=== PATIENT | female | born 1935 | race Caucasian/White ===

== ENCOUNTER 2019-11-24 09:51 | Outpatient (CLI) | payer MEDICARE, SELFPAY ==
[2019-11-24 10:03] LABS: Hematocrit 41.5 % (35.0-42.0); Hemoglobin 13.6 g/dL (11.7-13.8); Mean Corpuscular HGB Conc 32.8 g/dL (32.0-36.0); Mean Corpuscular Hemoglobin 27.6 pg (27.0-31.0); Mean Corpuscular Volume 84.2 fL (78.0-102.0); Mean Platelet Volume 8.8 fl (9.2-11.8); Platelet Count Result 247 K/mm3 (150-420); Red Blood Count 4.93 M/mm3 (4.20-5.40); Red Cell Distribution Width 12.9 % (11.6-14.4); White Blood Count 6.6 K/mm3 (4.8-10.8)
[2019-11-24 10:58] LABS: Alanine Aminotransferase 22 U/L (14-59); Albumin Level 3.8 g/dL (3.4-5.0); Alkaline Phosphatase 141 U/L (46-116); Anion Gap 13.4 mmol/L (7-16); Aspartate Amino Transferase 17 U/L (15-37); Bilirubin,Total 0.7 mg/dL (0.00-1.00); Blood Urea Nitrogen 20 mg/dL (7-18); Calcium 9.1 mg/dL (8.5-10.1); Carbon Dioxide 28 mmol/L (21-32); Chloride 104 mmol/L (98-108); Estimated Glomerular Filt Rate > 60; Glucose 93 mg/dL (70-99); Osmolality Calculated 294 mOsm/kg (285-295); Potassium 4.4 mmol/L (3.5-5.1); Sodium 141 mmol/L (136-145); Total Protein 6.6 g/dL (6.4-8.2)
== END 2019-11-24 09:52 | disposition home or self-care (01) ==
LOC: CHSLAB 09:52
PROVIDERS: PCP Family Medicine; Visit Provider Family Medicine
DX: I10 Essential (primary) hypertension (principal)
CPT/HCPCS: 36415; 80053; 85027

== ENCOUNTER 2020-09-05 14:20 | Outpatient (NON) | payer MEDICARE, SELFPAY | END 2020-09-05 14:21 | LOC: CHSLAB 14:22 | PROVIDERS: Visit Provider Family Medicine | DX: R30.0 Dysuria (principal) | CPT/HCPCS: 87077; 87086; 87088; 87186 ==

== ENCOUNTER 2021-05-30 14:15 | Outpatient (NON) | payer MEDICARE, SELFPAY | END 2021-05-30 14:16 | disposition home or self-care (01) | LOC: CHSLAB 14:17 | PROVIDERS: Visit Provider Family Medicine | DX: R31.9 Hematuria, unspecified (principal) | CPT/HCPCS: 87077; 87086; 87088; 87186 ==

== ENCOUNTER 2021-07-18 11:31 | Outpatient (CLI) | payer MEDICARE, SELFPAY ==
[2021-07-18 11:51] LABS: Hematocrit 39.4 % (35.0-42.0); Hemoglobin 13.7 g/dL (11.7-13.8); Mean Corpuscular HGB Conc 34.8 g/dL (32.0-36.0); Mean Corpuscular Hemoglobin 28.5 pg (27.0-31.0); Mean Corpuscular Volume 82.1 fL (78.0-102.0); Mean Platelet Volume 9.1 fl (9.2-11.8); Platelet Count Result 248 K/mm3 (150-420); Red Cell Distribution Width 12.7 % (11.6-14.4); White Blood Count 6.8 K/mm3 (4.8-10.8)
[2021-07-18 14:15] LABS: Alanine Aminotransferase 24 U/L (14-59); Albumin Level 3.9 g/dL (3.4-5.0); Alkaline Phosphatase 97 U/L (46-116); Anion Gap 10 mmol/L (8-16); Aspartate Amino Transferase 15 U/L (15-37); Bilirubin,Total 0.6 mg/dL (0.00-1.00); Blood Urea Nitrogen 18 mg/dL (7-18); Carbon Dioxide 28 mmol/L (21-32); Chloride 100 mmol/L (98-108); Estimated Glomerular Filt Rate > 60; Glucose 96 mg/dL (70-99); Osmolality Calculated 287 mOsm/kg (285-295); Potassium 4.4 mmol/L (3.5-5.1); Sodium 138 mmol/L (136-145); Total Protein 6.6 g/dL (6.4-8.2)
== END 2021-07-18 11:32 | disposition home or self-care (01) ==
LOC: CHSLAB 11:33
PROVIDERS: PCP Family Medicine; Visit Provider Family Medicine
DX: I10 Essential (primary) hypertension (principal)
CPT/HCPCS: 36415; 80053; 85027

== ENCOUNTER 2021-09-10 14:09 | Outpatient (CLI) | payer MEDICARE, OTHER, SELFPAY ==
--- NOTE | ~2021-09-10 | US_ITS ---
EXAMINATION: US venous doppler [facility] DATE: 09/10/2021 14:34 INDICATION: Left lower limb localized edema. TECHNIQUE: Grayscale ultrasound images without and with compression and Doppler ultrasound images of the left lower extremity veins were obtained. COMPARISON: None. FINDINGS: The visualized portions of left common femoral vein, profunda (deep) femoral vein, femoral vein, popl iteal vein, peroneal veins, posterior tibial veins, and greater saphenous vein outflow are patent. Th ere are calcified superficial veins in the medial calf. IMPRESSION: 1. No deep venous thrombosis. Reviewed, dictated and finalized at location A.
[2021-09-10 14:40] LABS: Hematocrit 38.3 % (35.0-42.0); Hemoglobin 12.7 g/dL (11.7-13.8); Mean Corpuscular HGB Conc 33.2 g/dL (32.0-36.0); Mean Corpuscular Hemoglobin 28.7 pg (27.0-31.0); Mean Corpuscular Volume 86.5 fL (78.0-102.0); Mean Platelet Volume 8.8 fl (9.2-11.8); Platelet Count Result 310 K/mm3 (150-420); Red Blood Count 4.43 M/mm3 (4.20-5.40); Red Cell Distribution Width 12.6 % (11.6-14.4); White Blood Count 6.7 K/mm3 (4.8-10.8)
[2021-09-10 15:38] LABS: Alanine Aminotransferase 18 U/L (14-59); Albumin Level 3.6 g/dL (3.4-5.0); Alkaline Phosphatase 95 U/L (46-116); Anion Gap 11 mmol/L (8-16); Aspartate Amino Transferase 15 U/L (15-37); Bilirubin,Total 0.5 mg/dL (0.00-1.00); Blood Urea Nitrogen 19 mg/dL (7-18); Carbon Dioxide 27 mmol/L (21-32); Chloride 100 mmol/L (98-108); Estimated Glomerular Filt Rate > 60; Glucose 125 mg/dL (70-99); NT Pro B Type Natriuretic Pept 271 pg/mL (0-450); Osmolality Calculated 289 mOsm/kg (285-295); Sodium 138 mmol/L (136-145); Total Protein 6.5 g/dL (6.4-8.2)
== END 2021-09-10 14:10 | disposition home or self-care (01) ==
LOC: CHSIMG 14:11
PROVIDERS: PCP Family Medicine; Visit Provider Family Medicine
DX: R60.0 Localized edema (principal); I10 Essential (primary) hypertension; I50.9 Heart failure, unspecified
CPT/HCPCS: 36415; 80053; 83880; 85027; 93971

== ENCOUNTER 2022-01-18 13:44 | Outpatient (NON) | payer MEDICARE, OTHER, SELFPAY | END 2022-01-18 13:45 | disposition home or self-care (01) | LOC: CHSLAB 13:46 | PROVIDERS: Visit Provider Urology | DX: N39.0 Urinary tract infection, site not specified (principal) | CPT/HCPCS: 87077; 87086; 87186 ==

== ENCOUNTER 2022-06-17 15:56 | Outpatient (NON) | payer MEDICARE, OTHER, SELFPAY | END 2022-06-17 15:57 | disposition home or self-care (01) | LOC: CHSLAB 15:57 | PROVIDERS: PCP Urology; Visit Provider Urology | DX: N39.0 Urinary tract infection, site not specified (principal) | CPT/HCPCS: 87077; 87086; 87088; 87186 ==

== ENCOUNTER 2022-12-23 07:04 | Outpatient (CLI) | payer MEDICARE, SELFPAY ==
[2022-12-23 08:05] LABS: Alanine Aminotransferase 24 U/L (14-59); Albumin Level 3.8 g/dL (3.4-5.0); Alkaline Phosphatase 115 U/L (46-116); Anion Gap 8 mmol/L (8-16); Aspartate Amino Transferase 27 U/L (15-37); Bilirubin,Total 0.6 mg/dL (0.00-1.00); Blood Urea Nitrogen 22 mg/dL (7-18); Calcium 8.9 mg/dL (8.5-10.1); Carbon Dioxide 28 mmol/L (21-32); Chloride 105 mmol/L (98-108); Estimated Glomerular Filt Rate > 60; Glucose 103 mg/dL (70-99); Osmolality Calculated 295 mOsm/kg (285-295); Potassium 4.3 mmol/L (3.5-5.1); Sodium 141 mmol/L (136-145)
== END 2022-12-23 07:05 | disposition home or self-care (01) ==
LOC: CHSLAB 07:06
PROVIDERS: PCP Family Medicine; Visit Provider Nurse Practitioner Family
DX: Z13.1 Encounter for screening for diabetes mellitus (principal)
CPT/HCPCS: 36415; 80053

== ENCOUNTER 2023-06-02 13:09 | Outpatient (CLI) | payer MEDICARE, OTHER, SELFPAY ==
--- NOTE | ~2023-06-02 | MM_ITS ---
EXAMINATION: MM screening [facility] w salma HISTORY: Screening mammogram TECHNIQUE: Craniocaudal and mediolateral oblique 3-D tomosynthesis images were obtained and synthetic 2-D images were generated. CAD analysis was submitted and interpreted. COMPARISON: 11/26/2018, 01/24/2014 BREAST PARENCHYMAL COMPOSITION: There are scattered areas of fibroglandular density. FINDINGS: Scattered benign-appearing calcifications are present. No suspicious mass, calcification, o r architectural distortion are identified in either breast to suggest malignancy. There has been no s uspicious interval change. IMPRESSION: 1. No mammographic evidence of malignancy. 2. Recommend routine screening mammography while the patient remains in good health. BI-RADS Category 2: Benign finding(s). Reviewed, dictated and finalized at location A. UNT RECEIVABLE CLERK IMPRESSION: 1. No mammographic evidence of malignancy. 2. Recommend routine screening mammography while the patient remains in good he alth. BI-RADS Category 2: Benign finding(s).
== END 2023-06-02 13:10 | disposition home or self-care (01) ==
LOC: CHSIMG 13:11
PROVIDERS: PCP Family Medicine; Visit Provider Nurse Practitioner Family
DX: Z12.31 Encounter for screening mammogram for malignant neoplasm of breast (principal)
CPT/HCPCS: 77063; 77067

== ENCOUNTER 2024-09-01 11:55 | Outpatient (CLI) | payer MEDICARE, OTHER, SELFPAY ==
--- NOTE | ~2024-09-01 | US_ITS ---
EXAMINATION: US arterial ankle brachial ind DATE: 09/01/2024 12:40 INDICATION: Nonpressure chronic ulcer of the left calf TECHNIQUE: Segmental pressures and plethysmographic and Doppler waveforms of the brachial and lower e xtremity arteries were obtained. COMPARISON: None. FINDINGS: Right and left brachial artery pressures of 124 mm Hg and 119 mm Hg, respectively, are concordant (no rmal difference <= 30 mmHg). The right ankle-brachial index (JOSUE) is 0.62 (normal >= 0.9-1.0) based upon pressures in the right do rsalis pedis artery with nearly indiscernible pulse in the right posterior tibial artery, insufficien t to establish a pressure. The right great toe-brachial index (TBI) is 0.29 (normal >= 0.65). Arteria l Doppler waveforms demonstrate normal systolic upstroke in the right dorsalis pedis artery. The left JOSUE is 0.51. The left TBI is 0.20. Arterial Doppler waveforms demonstrate normal systolic up stroke in the left dorsalis pedis artery. Similarly there is a very low amplitude of the left posteri or tibial arterial waveform but which is demonstrated normal systolic upstroke. IMPRESSION: 1. 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 Reviewed, dictated and finalized at location B. H MECHANIC IMPRESSION: 1. 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
--- OUTSIDE RECORDS SUMMARY | 2024-09-01 13:29 | XMS_ITS ---
Author Organization [facility] Address [address] [place], [place] [id number] Care Team Providers Care Information Systems Architect Name Role Phone TERRY TOLENTINO Unavailable [phone] Sergio Dejesus Unavailable Unavailable GABRIELLA CACERES Unavailable [phone] REASON FOR VISIT *General care Medications Medication SIG (Take, Route, Frequency, Duration) Notes Start Date End Date Status amLODIPine Besylate 5 MG Oral for 90 Days Active Lisinopril 10 MG Oral for 90 Days Active Cephalexin 250 MG Oral for 90 Days Active Encounters Encounter Location Date Provider Diagnosis [facility] [address], [place] [id number] 04/22/2024 GABRIELLA CACERES Other hammer toe(s) (acquired), left foot M20.42 ; Tinea unguium B35.1 ; Pain in left toe(s) M79.675 ; Other hammer toe(s) (acquired), right foot M20.41 ; Pain in right toe(s) M79.674 ; Unspecified atherosclerosis of [place] arteries of extremities, bilateral legs I70.203 and Acquired keratosis [keratoderma] palmaris et plantaris L85.1 Assessments Encounter Date Diagnosis (ICD Code) Assessment Notes Treatment Notes Treatment Clinical Notes Section Notes 04/22/2024 Other hammer toe(s) (acquired), left foot (ICD-10 - M20.42) The patient was educated regarding how to mechanically stabilize their deformity. The patient was given education about shoe recommendations specific for the condition. The patient was educated about custom orthotics and how appropriate shoes and orthotics can prevent further worsening of the deformity. The patient was educated about how bad shoe habits can worsen the condition. NSAIDS, P.T., injections and other conservative treatments were discussed. Both surgical and non surgical treatments were discussed, but conservative options were emphasized. 04/22/2024 Tinea unguium (ICD-10 - B35.1) Aseptic debridement of elongated thickened nails x 10 using sterile nippers, nails were debrided in length and thickness by 30% utilizing a nail nipper without incident. The patient was educated regarding all treatment options that include topical and oral antifungal treatments. I discussed the options of taking a sample of the nail to confirm diagnosis. Nail clippings were not sent for pathology analysis. The patient was educated why and how the fungal infection evolved in their feet and the patient was given information regarding how to prevent further infection. The patient was told to keep feet dry and change socks. The patient was told to be careful with old shoes and excessive sweating. The patient was educated regarding both OTC and prescription treatments. 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 After removal of overlying extensive hyperkeratosis, healthy tissue was noted and care was taken to assure that no undermining or probing was present. It should be noted that no probing was noted and no infection or drainage was noted. Plan Of Treatment Treatment Notes Assessment Notes Other hammer toe(s) (acquired), left aracelis t The patient was educated regarding how to mechanically stabilize their deformity. The patient was given education about shoe recommendations specific for the condition. The patient was educated about custom orthotics and how appropriate shoes and orthotics can prevent further worsening of the deformity. The patient was educated about how bad shoe habits can worsen the condition. NSAIDS, P.T., injections and other conservative treatments were discussed. Both surgical and non surgical treatments were discussed, but conservative options were emphasized. Tinea unguium Aseptic debridement of elongated thickened nails x 10 using sterile nippers, nails were debrided in length and thickness by 30% utilizing a nail nipper without incident. The patient was educated regarding all treatment options that include topical and oral antifungal treatments. I discussed the options of taking a sample of the nail to confirm diagnosis. Nail clippings were not sent for pathology analysis. The patient was educated why and how the fungal infection evolved in their feet and the patient was given information regarding how to prevent further infection. The patient was told to keep feet dry and change socks. The patient was told to be careful with old shoes and excessive sweating. The patient was educated regarding both OTC and prescription treatments. 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 After removal of overlying extensive hyperkeratosis, healthy tissue was noted and care was taken to assure that no undermining or probing was present. It should be noted that no probing was noted and no infection or drainage was noted. Next Appt Details Follow Up: 3 Months, Reason: Provider Name:TERRY CUEVASTOÑOChelita, 02:20:00 PM, [address] [place] [address], [phone], Progress Notes * BORIS BAUMAN ADOB: 5 (89 yo F)Acc No.[id number]:04/22/2024 Patient: Nathalie ALBINO BORIS A Provider: Nabila CACERES :1935 A ge:89 Y S ex:Female Date:04/22/2024 Address:[address] [place], [place] [id number] Subjective: * Chief Complaints: * 1 . *General care. * HPI: H PI: General care P sarah presents to the office for at risk foot care. Patient states that their nails are thickened, elongated and painful. Patient states that it is aggravated by shoe gear. Onset is gradual. Patient denies being diabetic., Patient denies taking prescription blood thinners but does take a daily aspirin., Date last seen by Dr. Dejesus was 10/2023., Initials mca. * ROS: G eneral / Constitutional: Patient denies w eakness. R espiratory: Patient denies c hronic cough, shortness of breath, sputum production. C ardiovascular: Patient denies c hest pain, history of CA, irregular heartbeat. M usculoskeletal: Patient denies a rthritis, joint stiffness. P atient complains of h ammertoes. P eripheral Vascular: Patient denies b lanching of skin, cold extremities, decreased sensation in extremities. S kin: Patient complains of u lcerations. N eurologic: Patient denies d izziness, gait abnormality, headache. * Medical History: * Medications: T aking amLODIPine Besylate 5 MG Tablet Oral , Taking Lisinopril 10 MG Tablet Oral , Taking Cephalexin 250 MG Capsule Oral Objective: * Vitals: * Examination: P hysical Examination: V ascular: Dorsalis Pedis pulse noted at 1/4 right foot and 1/4 left foot and Posterior Tibial pulse noted at 1/4 right foot and 1/4 left foot, Capillary refill times noted to be less than three seconds x ten, Temperature gradient noted to be warm to cool to bilateral foot, pedal hair present to bilateral foot and no varicosities are noted Dermatologic: hyperkeratotic tissue noted to lateral second digit left foot, no erythema is noted to left foot second digit, no ecchymoses, nails are elongated thickened with subungual debris x ten, interdigital spaces clean dry and intact Neurology: protective sensation intact to light touch bilateral digits one through five, vibratory sensation intact to first metatarsophalangeal joint bilaterally Musculoskeletal: pain to palpation left foot second digit hyperkeratotic tissue, arch height 2/5 NWB bilateral 1/5 WB, no calf pain noted b/l, too many toes signs noted on weight bearing exam , flexible second digit hammer toe deformity is noted to bilateral foot. Assessment: * Assessment: 1. T inea unguium - B35.1 (Primary) 2 . O ther hammer toe(s) (acquired), left foot - M20.42 3 . P ain in left toe(s) - M79.675 4 . O ther hammer toe(s) (acquired), right foot - M20.41 5 . P ain in right toe(s) - M79.674 6 . U nspecified atherosclerosis of [place] arteries of extremities, bilateral legs - I70.203 7 . 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 O ther hammer toe(s) (acquired), left foot Notes: The patient was educated regarding how to mechanically stabilize their deformity. The patient was given education about shoe recommendations specific for the condition. The patient was educated about custom orthotics and how appropriate shoes and orthotics can prevent further worsening of the deformity. The patient was educated about how bad shoe habits can worsen the condition. NSAIDS, P.T., injections and other conservative treatments were discussed. Both surgical and non surgical treatments were discussed, but conservative options were emphasized. 3. U nspecified atherosclerosis of [place] arteries of extremities, bilateral legs Notes: Patient educated on risks and aggravating factors of PVD, including conservative treatment options such as a diet and exercise regimen to aid in slowing progression of vascular disease ? 4. A cquired keratosis [keratoderma] palmaris et plantaris Notes: Pre-ulcerative keratoderma debrided sharply down to the level of healthy tissue using a 15 blade. After removal of overlying extensive hyperkeratosis, healthy tissue was noted and care was taken to assure that no undermining or probing was present. It should be noted that no probing was noted and no infection or drainage was noted. * Procedure Codes: 1 1056 TRIM SKIN LESIONS, 2 TO 4, Modifiers: Q8 , 65970 DEBRIDE NAIL, 6 OR MORE, Modifiers: 59 , Q8 * Follow Up: 3 Months * Billing Information: * Visit Code: * Procedure Codes: 90562 TRIM SKIN LESIONS, 2 TO 4. Modifiers: Q8 98393 DEBRIDE NAIL, 6 OR MORE. Modifiers: 59, Q8 * LEAD Sign off status: Completed true * Provider: Nabila CACERES Date: 1 Generated for Beatriz vargas/Jazmin/Ger on: 0 09/01/2024 01:29 PM RISK LEAD History and Physical Notes * HPI (History of Present Illness) Category Sub-Category Detail Notes Category Not es HPI General care Patient presents to the office for at risk foot care. Patient states that their nails are thickened, elongated and painful. Patient states that it is aggravated by shoe gear. Onset is gradual. Patient denies being diabetic., Patient denies taking prescription blood thinners but does take a daily aspirin., Date last seen by Dr. Dejesus was 10/2023., Initials mca Examination Category Sub-Category Detail Notes Category Not es Physical Examination Vascular: Dorsalis Pedis pulse noted at 1/4 right foot and 1/4 left foot and Posterior Tibial pulse noted at 1/4 right foot and 1/4 left foot, Capillary refill times noted to be less than three seconds x ten, Temperature gradient noted to be warm to cool to bilateral foot, pedal hair present to bilateral foot and no varicosities are noted Dermatologic: hyperkeratotic tissue noted to lateral second digit left foot, no erythema is noted to left foot second digit, no ecchymoses, nails are elongated thickened with subungual debris x ten, interdigital spaces clean dry and intact Neurology: protective sensation intact to light touch bilateral digits one through five, vibratory sensation intact to first metatarsophalangeal joint bilaterally Musculoskeletal: pain to palpation left foot second digit hyperkeratotic tissue, arch height 2/5 NWB bilateral 1/5 WB, no calf pain noted b/l, too many toes signs noted on weight bearing exam , flexible second digit hammer toe deformity is noted to bilateral foot
--- OUTSIDE RECORDS SUMMARY | 2024-09-01 13:29 | XMS_ITS | Clinical Summary ---
Author Organization [facility] Address [facility] [place] [address] Care Team Providers Care Evp Managing Director Name Role Phone Sergio Dejesus DO Primary Care Provider [phone] Encounters Date Type Department Care Team Description 08/27/2024 9:53 AM TERADATA SOLUTION ARCHITECT - 08/27/2024 11:59 PM TERADATA SOLUTION ARCHITECT Hospital Encounter [facility] [address] [place] [address] Aliya Galvez FNP Discharge Disposition: Home or Self Care (Routine Discharge) 08/27/2024 Travel from Last 3 Months Social History Tobacco Use Types Packs/Day Years Used Date Smoking Tobacco: Never Assessed Comments Unknown Sex and Gender Information Value Date Recorded Sex Assigned at Female 08/27/2024 10:00 AM TERADATA SOLUTION ARCHITECT Legal Sex Female 8:54 PM CDT Gender Identity Not on file Sexual Orientation Not on file Plan of Treatment Upcoming Encounters Date Type Department Care Team (Late st Contact Info) Description 09/03/2024 10:00 AM TERADATA SOLUTION ARCHITECT Appointment [facility] [address] [place] [address] Aliya Galvez FNP [address] [place] [address] Health Maintenance Due Date Last Done Comments DTaP, Tdap and Td Vaccines ( 1 - Tdap) 1954 Zoster Vaccines (1 of 2) 1985 Annual Medicare Wellness Visit 2000 Pneumococcal Vaccine: 65+ Ye ars (1 of 1 - PCV) 2000 RSV Immunization or 60+ Years (1 - 1-dose 75+ series) 2010 COVID-19 Vaccine (2023-2 5 season) 2024 Influenza Adult (#1) 2024 Meningococcal B Vaccine Aged Out No l onger eligible based on patient's age to complete this topic Meningococcal Vaccine Aged Out No contreras francisco eligible based on patient's age to complete this topic RSV Immunizations Under 20 Months Aged Out No longer eligible based on patient's age to complete this topic Procedures Procedure Name Priority Date/Time Associated Diagnosis Comments HC BODY FLUID CULTURE Routine 08/27/2024 10:49 AM TERADATA SOLUTION ARCHITECT Non-pressure chronic ulcer of left calf with fat layer exposed ([facility]) from Last 3 Months Results * CULTURE, WOUND, W/GRAM STAIN (08/27/2024 10:49 AM TERADATA SOLUTION ARCHITECT) SPEC DESCRIPTION LEG,LEFT 08/27/2024 12:01 PM TERADATA SOLUTION ARCHITECT [facility] SPECIAL REQUESTS NO SPECIAL REQUEST 08/27/2024 12:01 PM TERADATA SOLUTION ARCHITECT [facility] GRAM STAIN RESULT NO ORGANISMS SEEN 08/27/2024 2:57 PM TERADATA SOLUTION ARCHITECT [facility] CULTURE RESULT MODERATE STAPHYLOCOCCU S, COAGULASE NEGATIVE 08/29/2024 2:01 [address] [facility] CULTURE RESULT MODERATE DIPHTHEROIDS 08/29/2024 2:01 [address]ADATA SOLUTION [address] [facility] STRUCTURE OF LEFT LOWER LIMB / Unknown 08/27/2024 10:49 AM TERADATA SOLUTION ARCHITECT 08/27/2024 12:08 PM TERADATA SOLUTION ARCHITECT Aliya PENAP MICROBIOLOGY - GENERAL ORDERAB LES Final Result [facility] [address] [place] [address], [place] [phone] [id number] [facility] [address] [place] [address], [place] [phone] from Last 3 Months Insurance MEDICARE [place] OF [facility] Care Teams Evp Managing Director Relationship Specialty Start Date End Date Sergio Dejesus DO [address] [place] [address] PCP - General FAMILY PRACTICE 08/27/24
--- OUTSIDE RECORDS SUMMARY | 2024-09-01 13:29 | XMS_ITS ---
Author Organization [facility] Address [address] [place], [place] [id number] Care Team Providers Care Poleyard Supervisor Name Role Phone TERRY TOLENTINO Unavailable [phone] Sergio Dejesus Unavailable Unavailable GABRIELLA CACERES Unavailable [phone] REASON FOR VISIT *General care Encounters Encounter Location Date Provider Diagnosis [address] [phone] 04/08/2024 GABRIELLA CACERES Plan Of Treatment Next Appt Details Provider Name:TERRY TOLENTINO, 02:20:00 PM, [address] [place] [address], [phone], Progress Notes * BORIS BAUMAN ADOB: (89 yo F)Acc No.[id number]:04/08/2024 Patient: BORIS WELLS Provider: Nabila CACERES :1935 A ge:89 Y S ex:Female Date:04/08/2024 Address:[address] [place], [place] [id number] Subjective: * Chief Complaints: * 1 . *General care. * Medical History: Objective: * Vitals: Assessment: Plan: * Treatment: * Billing Information: * Visit Code: * Procedure Codes: * Electronic signature of MAIA CACERES DPM on 09/01/2024 at 01:29 PM OBSTETRICS NURSE Sign off status: Pending * Provider: Nabila CACERES Date: 1 Generated for Beatriz vargas/Jazmin/Candaceitting on: 0 09/01/2024 01:29 PM OBSTETRICS NURSE
--- OUTSIDE RECORDS SUMMARY | 2024-09-01 13:29 | XMS_ITS | Patient Health Record ---
Author Organization [facility] Address [address] [place], [place] [id number] Care Team Providers Care Sales Support Advisor Name Role Phone TERRY TOLENTINO Unavailable [phone] Sergio Dejesus Unavailable Unavailable GABRIELLA CACERES Unavailable [phone] Allergies No Known Allergies Reason For Referral No Information Medications Medication SIG (Take, Route, Frequency, Duration) Notes Start Date End Date Status amLODIPine Besylate 5 MG Oral for 90 Days Active Lisinopril 10 MG Oral for 90 Days Active Cephalexin 250 MG Oral for 90 Days Active Vital Signs Height-cm 170.18 cm 12/04/2023 Weight-kg 63.5 kg 12/04/2023 Height 67.00 in 12/04/2023 Weight 140 lbs 12/04/2023 BMI 21.92 kg/m2 12/04/2023 Encounters Encounter Location Date Provider Diagnosis [address] [id number] 09/11/2023 GABRIELLA CACERES Cellulitis of left t oe L03.032 ; Cutaneous abscess of left foot L02.612 ; Other hammer toe(s) (acquired), left foot M20.42 ; Unspecified atherosclerosis of [place] arteries of extremities, bilateral legs I70.203 and Localized edema R60.[address] [id number] 09/18/2023 GABRIELLA CACERES Cellulitis of left t oe L03.032 ; Cutaneous abscess of left foot L02.612 ; Other hammer toe(s) (acquired), left foot M20.42 ; Unspecified atherosclerosis of [place] arteries of extremities, bilateral legs I70.203 ; Localized edema R60.0 and 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 [id number] 10/02/2023 GABRIELLA CACERES Cellulitis of left t oe L03.032 ; 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 ; Cutaneous abscess of left foot L02.612 ; Other hammer toe(s) (acquired), left foot M20.42 ; Unspecified atherosclerosis of [place] arteries of extremities, bilateral legs I70.203 and Localized edema R60.[address] [id number] 11/06/2023 GABRIELLA CACERES Unspecified atherosclerosis of [place] arteries of extremities, bilateral legs I70.203 ; Acquired keratosis [keratoderma] palmaris et plantaris L85.1 ; Other hammer toe(s) (acquired), left foot M20.42 ; Pain in left toe(s) M79.675 and Other hammer toe(s) (acquired), right foot M20.[address] [id number] 12/04/2023 GABRIELLA CACERES Other hammer toe(s) (acquired), left foot M20.42 ; Tinea unguium B35.1 ; Pain in left toe(s) M79.675 ; Other hammer toe(s) (acquired), right foot M20.41 ; Pain in right toe(s) M79.674 ; Unspecified atherosclerosis of [place] arteries of extremities, bilateral legs I70.203 and Acquired keratosis [keratoderma] palmaris et plantaris L85.[address] [id number] 02/05/2024 GABRIELLA CACERES Other hammer toe(s) (acquired), left foot M20.42 ; Tinea unguium B35.1 ; Pain in left toe(s) M79.675 ; Other hammer toe(s) (acquired), right foot M20.41 ; Pain in right toe(s) M79.674 ; Unspecified atherosclerosis of [place] arteries of extremities, bilateral legs I70.203 and Acquired keratosis [keratoderma] palmaris et plantaris L85.1 [address] [place], [place] [id number] 04/22/2024 GABRIELLA CACERES Other hammer toe(s) (acquired), left foot M20.42 ; Tinea unguium B35.1 ; Pain in left toe(s) M79.675 ; Other hammer toe(s) (acquired), right foot M20.41 ; Pain in right toe(s) M79.674 ; Unspecified atherosclerosis of [place] arteries of extremities, bilateral legs I70.203 and Acquired keratosis [keratoderma] palmaris et plantaris L85.1 [address] [place], [place] [id number] 07/01/2024 TERRY TOLENTINO Tinea unguium B35.1 ; Pain in right foot M79.671 ; Pain in left foot M79.672 ; Atherosclerosis of [place] arteries of extremities with intermittent claudication, bilateral legs I70.213 and Acquired keratosis [keratoderma] palmaris et plantaris L85.1 [facility] [address] [place], [place] [id number] 09/15/2023 GABRIELLA CACERES Assessments Encounter Date Diagnosis (ICD Code) Assessment Notes Treatment Notes Treatment Clinical Notes Section Notes 09/11/2023 Cutaneous abscess of left foot (ICD-10 - L02.612) Following skin prep, the abscess to left foot second digit was incised and drained with the use of a #15 blade. The infection was decompressed. Recommend daily Betadine dressing changes. Patient instructed to monitor the area. 09/11/2023 Cellulitis of left toe (ICD-10 - L03.032) The area of cellulitis was evaluated and it should be noted that antibiotics were discussed and a close evaluation was performed to assess the need for IV antibiotics versus oral antibiotics. Due to the non-ascending nature of the cellulitis and with no signs of abscess, oral antibiotics were chosen. Rx augmentin. 09/18/2023 Cutaneous abscess of left foot (ICD-10 - L02.612) 09/18/2023 Cellulitis of left toe (ICD-10 - L03.032) The area of cellulitis was evaluated and it should be noted that antibiotics were discussed and a close evaluation was performed to assess the need for IV antibiotics versus oral antibiotics. Due to the non-ascending nature of the cellulitis and with no signs of abscess, oral antibiotics were chosen. Finish course of oral antibiotic. 10/02/2023 Cellulitis of left toe (ICD-10 - L03.032) The area of cellulitis was evaluated and it should be noted that antibiotics were discussed and a close evaluation was performed to assess the need for IV antibiotics versus oral antibiotics. Due to the non-ascending nature of the cellulitis and with no signs of abscess, oral antibiotics were chosen. Finish course of oral antibiotic. 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 A dry sterile dressing was applied. The patient was given instruction on home dressing and told to use antibiotic ointment on the wound. The patient was instructed to minimize pressure on the wound and to call the office immediately if the wound should start to worsen. 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 After removal of overlying extensive hyperkeratosis, healthy tissue was noted and care was taken to assure that no undermining or probing was present. It should be noted that no probing was noted and no infection or drainage was noted. 12/04/2023 Tinea unguium (ICD-10 - B35.1) 12/04/2023 Other hammer toe(s) (acquired), left foot (ICD-10 [...] were discussed, but conservative options were emphasized. 02/05/2024 Tinea unguium (ICD-10 - B35.1) Aseptic debridement [...] educated regarding both OTC and prescription treatments. 02/05/2024 Other hammer toe(s) (acquired), left foot (ICD-10 [...] regarding both OTC and prescription treatments. 04/22/2024 Other hammer toe(s) (acquired), left foot [...] were discussed, but conservative options were emphasized. 07/01/2024 Tinea unguium (ICD-10 - B35.1) Nails 1-5 Bilateral were debrided extensively with nail nippers and emery board, reducing length and girth to pink healthy tissue with any subungual debris and necrotic tissue removed 07/01/2024 Pain in right foot (ICD-10 - M79.671) 07/01/2024 Pain in left foot (ICD-10 - M79.672) 04/22/2024 Pain in left toe(s) (ICD-10 - M79.675) 02/05/2024 Pain in left toe(s) (ICD-10 - M79.675) 12/04/2023 Pain in left toe(s) (ICD-10 - M79.675) 11/06/2023 Other hammer toe(s) (acquired), left foot (ICD-10 [...] were discussed, but conservative options were emphasized. 10/02/2023 Cutaneous abscess of left foot (ICD-10 - L02.612) 09/18/2023 Other hammer toe(s) (acquired), left foot (ICD-10 [...] were discussed, but conservative options were emphasized. 09/11/2023 Other hammer toe(s) (acquired), left foot (ICD-10 [...] were discussed, but conservative options were emphasized. 09/11/2023 Unspecified atherosclerosis of [place] arteries of extremities, bilateral legs (ICD-10 - I70.203) Patient educated on risks and aggravating factors of PVD, including conservative treatment options such as a diet and exercise regimen to aid in slowing progression of vascular disease 09/18/2023 Unspecified atherosclerosis of [place] arteries of extremities, bilateral legs (ICD-10 - I70.203) Patient educated on risks and aggravating factors of PVD, including conservative treatment options such as a diet and exercise regimen to aid in slowing progression of vascular disease 10/02/2023 Other hammer toe(s) (acquired), left foot (ICD-10 [...] were discussed, but conservative options were emphasized. 11/06/2023 Pain in left toe(s) (ICD-10 - M79.675) 12/04/2023 Other hammer toe(s) (acquired), right foot (ICD-10 - M20.41) 02/05/2024 Other hammer toe(s) (acquired), right foot (ICD-10 - M20.41) 04/22/2024 Other hammer toe(s) (acquired), right foot (ICD-10 - M20.41) 07/01/2024 Atherosclerosis of [place] arteries of extremities with intermittent claudication, bilateral legs (ICD-10 - I70.213) 07/01/2024 Acquired keratosis [keratoderma] palmaris et plantaris (ICD-10 - L85.1) A total of 1 corns or calluses, as described in the note above, were cut and pared utilizing a #15 blade 04/22/2024 Pain in right toe(s) (ICD-10 - M79.674) 02/05/2024 Pain in right toe(s) (ICD-10 - M79.674) 12/04/2023 Pain in right toe(s) (ICD-10 - M79.674) 11/06/2023 Other hammer toe(s) (acquired), right foot (ICD-10 - M20.41) 09/11/2023 Localized edema (ICD-10 - R60.0) 09/18/2023 Localized edema (ICD-10 - R60.0) 10/02/2023 Unspecified atherosclerosis of [place] arteries of extremities, bilateral legs (ICD-10 - I70.203) Patient educated on risks and aggravating factors of PVD, including conservative treatment options such as a diet and exercise regimen to aid in slowing progression of vascular disease 09/18/2023 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 A dry sterile dressing was applied. The patient was given instruction on home dressing and told to use antibiotic ointment on the wound. The patient was instructed to minimize pressure on the wound and to call the office immediately if the wound should start to worsen. 10/02/2023 Localized edema (ICD-10 - R60.0) 12/04/2023 Unspecified atherosclerosis of [place] arteries of extremities, bilateral legs (ICD-10 - I70.203) Patient educated on risks and aggravating factors of PVD, including conservative treatment options such as a diet and exercise regimen to aid in slowing progression of vascular disease 02/05/2024 Unspecified atherosclerosis of [place] arteries of extremities, bilateral legs (ICD-10 - I70.203) Patient educated on risks and aggravating factors of PVD, including conservative treatment options such as a diet and exercise regimen to aid in slowing progression of vascular disease 04/22/2024 Unspecified atherosclerosis of [place] arteries of extremities, bilateral legs (ICD-10 - [...] and no infection or drainage was noted. 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 After removal of overlying extensive hyperkeratosis, healthy tissue was noted and care was taken to assure that no undermining or probing was present. It should be noted that no probing was noted and no infection or drainage was noted. 12/04/2023 Acquired keratosis [keratoderma] palmaris et plantaris (ICD-10 [...] or drainage was noted. Plan Of Treatment Next Appt Details Provider Name:TERRY CUEVASMILE, 02:20:00 PM, [address] [place] [address], [place], [place], [id number], Insurance Providers Payer Name Payer Address Payer Phone Subscriber Number Group Number Insured Name Patient Relationship to Insured Coverage Start Date Coverage End Date Medicare Part B [facility] [address] [place] [address] [id number] BORIS BAUMAN Self - patient is the insured [employer] [id number] [facility] [place] [place] [id number] BORIS BAUMAN Self - patient is the insured
--- OUTSIDE RECORDS SUMMARY | 2024-09-01 13:29 | XMS_ITS ---
Author Organization [facility] Address [address] [place], [place] [phone] Care Team Providers Care Clinical Informatics Physician Name Role Phone TERRY TOLENTINO Unavailable [phone] Sergio Dejesus Unavailable Unavailable REASON FOR VISIT Patient presents for at-risk foot care . The patient has painful toenails and calluses that are causing difficulty with ambulation and shoegear. The onset is gradual Medications Medication SIG (Take, Route, Frequency, Duration) Notes Start Date End Date Status amLODIPine Besylate 5 MG Oral for 90 Days Active Lisinopril 10 MG Oral for 90 Days Active Cephalexin 250 MG Oral for 90 Days Active Encounters Encounter Location Date Provider Diagnosis [facility] [address] [place], [place] [id number] 07/01/2024 TERRY TOLENTINO Tinea unguium B35.1 ; Pain in right foot M79.671 ; Pain in left foot M79.672 ; Atherosclerosis of [place] arteries of extremities with intermittent claudication, bilateral legs I70.213 and Acquired keratosis [keratoderma] palmaris et plantaris L85.1 Assessments Encounter Date Diagnosis (ICD Code) Assessment Notes Treatment Notes Treatment Clinical Notes Section Notes 07/01/2024 Tinea unguium (ICD-10 - B35.1) Nails 1-5 Bilateral were debrided extensively with nail nippers and emery board, reducing length and girth to pink healthy tissue with any subungual debris and necrotic tissue removed 07/01/2024 Pain in right foot (ICD-10 - M79.671) 07/01/2024 Pain in left foot (ICD-10 - M79.672) 07/01/2024 Atherosclerosis of [place] arteries of extremities with intermittent claudication, bilateral legs (ICD-10 - I70.213) 07/01/2024 Acquired keratosis [keratoderma] palmaris et plantaris (ICD-10 - L85.1) A total of 1 corns or calluses, as described in the note above, were cut and pared utilizing a #15 blade Plan Of Treatment Treatment Notes Assessment Notes Tinea unguium Nails 1-5 Bilateral were debrided extensively with nail nippers and emery board, reducing length and girth to pink healthy tissue with any subungual debris and necrotic tissue removed Acquired keratosis [keratode rma] palmaris et plantaris A total of 1 corns or calluses, as described in the note above, were cut and pared utilizing a #15 blade Next Appt Details Follow Up: 10 - 12 weeks, Re ason: At-Risk Foot care, sooner if problems develop. Provider Name:TERRY TOLENTINO, 02:20:00 PM, [address] [place] [address], [id number], Progress Notes * BORIS BAUMAN ADOB: [birth year] (89 yo F)Acc No.[id number]:07/01/2024 Patient: Nathalie ALBINOSUEBORIS A Provider: Chantell Tolentino DPM :1935 A ge:89 Y S ex:Female Date:07/01/2024 Address:[address] [place], [place] [id number] Subjective: * Chief Complaints: * Cuco smith presents for at-risk foot care . The patient has painful toenails and calluses that are causing difficulty with ambulation and shoegear. The onset is gradual * HPI: H PI: General care Cuco smith presents to the office for at risk foot care. Patient states that their nails are thickened, elongated and painful. Patient states that it is aggravated by shoe gear. Onset is gradual. Patient denies being diabetic., Patient denies taking prescription blood thinners but does take a daily aspirin., Date last seen by Dr. Dejesus was 06/2024., Initials [facility]. * Medical History: * Surgical History: * Hospitalization/Major Diagno stic Procedure: * Medications: T akingamLODIPine Besylate 5 MG Tablet Oral Lisinopril 10 MG Tablet Oral Cephalexin 250 MG Capsule Oral Medication List reviewed and reconciled with the patientTaking amLODIPine Besylate 5 MG Tablet Oral Taking Lisinopril 10 MG Tablet Oral Taking Cephalexin 250 MG Capsule Oral Medication List reviewed and reconciled with the patient Objective: * Vitals: * Examination: P hysical Examination: General appearance: A lert, pleasant, well-nourished and in no acute distress. D ermatologic: Skin findings: S kin is thin, atrophic and lacking pedal hair. Hypertrophic / hyperkeratotic lesion: d orsal aspect of the right 5th digit. Nail pathology: N ails 1, 2, 3, 4, and 5 bilateral are elongated, thick, discolored, and dystrophic with subungual debris. They are painful to palpation. ? V ascular: Dorsalis pedis pulse: 1 /4 b ilateral. Posterior tibial pulse: 0 /4 bilateral. Capillary refill: g reater than 3 seconds. Edema: N o edema bilateral. N eurologic: Gross sensation G rossly intact to light touch. There is negative Tinel's sign. M usculoskeletal: Muscle Strength M uscle strength is 5/5 in regards to dorsiflexion, plantarflexion, inversion, and eversion in bilateral lower extremities. ? Assessment: * Assessment: 1. T inea unguium - B35.1 (Primary) 2 . P ain in right foot - M79.671 ? 3 . P ain in left foot - M79.672 4 . A therosclerosis of [place] arteries of extremities with intermittent claudication, bilateral legs - I70.213 5 . Acquired keratosis [keratoderma] palmaris et plantaris - L85.1 Plan: * Treatment: 2. A cquired keratosis [keratoderma] palmaris et plantaris Notes: A total of 1 corns or calluses, as described in the note above, were cut and pared utilizing a #15 blade * Procedure Codes: 1 1055 TRIM SKIN LESION, Modifiers: Q8 22653 DEBRIDE NAIL, 6 OR MORE, Modifiers: 59 , Q8 * Follow Up: 1 0 - 12 weeks (Reason: At-Risk Foot care, sooner if problems develop.) * Billing Information: * Visit Code: * Procedure Codes: 75982 TRIM SKIN LESION. Modifiers: Q8 18847 DEBRIDE NAIL, 6 OR MORE. Modifiers: 59, Q8 * RVISOR LIME Sign off status: Completed true * Provider: Chantell Tolentino DPM Date: 0 07/01/2024 Generated for Beatriz vargas/Jazmin/Ger on: 0 09/01/2024 01:28 PM SUPERVISOR LIME History and Physical Notes * HPI (History [...] Date last seen by Dr. Dejesus was 06/2024., Initials [facility] Examination Category Sub-Category Detail Notes Category Not es Dermatologic Skin findings: Skin is thin, at rophic and lacking pedal hair Nail pathology: Nails 1, 2, 3, 4, an d 5 bilateral are elongated, thick, discolored, and dystrophic with subungual debris. They are painful to palpation Hypertrophic / hyperkeratotic lesion: do rsal aspect of the right 5th digit Neurologic Gross sensation Grossly intact t o light touch. There is negative Tinel's sign Vascular Dorsalis pedis pulse: 1/4 bilateral Edema: No edema bilateral Capillary refill: greater than 3 secon ds Posterior tibial pulse: 0/4 bilateral Physical Examination General appearance: Alert, pleasant, well-nourished and in no acute distress Musculoskeletal Muscle Strength Muscle strength is 5/5 in regards to dorsiflexion, plantarflexion, inversion, and eversion in bilateral lower extremities
== END 2024-09-01 11:56 | disposition home or self-care (01) ==
PROVIDERS: PCP Nurse Practitioner Family
DX: L97.222 Non-pressure chronic ulcer of left calf with fat layer exposed (principal); I73.9 Peripheral vascular disease, unspecified
CPT/HCPCS: 93922